=== PATIENT | female | born 1965 | race Caucasian/White ===

== ENCOUNTER → 2024-02-09 10:00 | Outpatient (CLI) | payer BC, SELFPAY ==
--- NOTE | 2024-02-09 10:02 | DI.RAD.S_ITS ---
PROCEDURE: XR CHEST 2V INDICATIONS: short of breath with exertion TECHNIQUE: 2 views of the chest were acquired. COMPARISON: None. FINDINGS: Surgical changes and devices: None. Lungs and pleura: Lungs are clear. No pleural effusions or pneumothorax. Mediastinum: Mediastinal contours are normal. Heart size is normal. Bones and chest wall: No suspicious bony abnormalities. Soft tissues appear unremarkable. IMPRESSION: No acute cardiopulmonary abnormality is seen. Dictated by: Jud Tello MD, PhD on 02/09/2024 at 10:25 Approved by: Jud Tello MD, PhD on 02/09/2024 at 10:25
[2024-02-09 10:55] LABS: D Dimer < 215 ng/ml (<500)
[2024-02-09 10:59] LABS: Creatine Kinase 135 U/L (30-135)
[2024-02-09 11:11] LABS: Troponin I < 0.012 ng/mL (0.01-0.034)
== END ==
PROVIDERS: Referring Provider Student in an Organized Health Care Education/Training Program; Visit Provider Student in an Organized Health Care Education/Training Program
DX: R06.02 Shortness of breath (principal); R53.83 Other fatigue
CPT/HCPCS: 36415; 71046; 82550; 84484; 85379

== ENCOUNTER → 2024-04-06 09:53 | Outpatient (CLI) | payer BC, SELFPAY ==
[2024-04-06 10:29] LABS: Add Manual Diff / Slide Review NO; Basophils Absolute Auto 100 /uL (0-100); Basophils Percent Auto 0.8 % (0-2); Eosinophils Absolute Auto 100 /uL (0-450); Eosinophils Percent Auto 0.9 % (2-4); Hematocrit 42.2 % (36-46); Hemoglobin 14.2 g/dL (12.0-16.0); Lymphocytes Absolute Auto 1700 /uL (1100-4500); Lymphocytes Percent Auto 25.4 % (25-40); Mean Corpuscular HGB Conc 33.6 % (30-36); Mean Corpuscular Hemoglobin 31.1 PG (26-34); Mean Corpuscular Volume 92.6 fL (80-100); Monocytes Absolute Auto 500 /uL (0-900); Monocytes Percent Auto 7.7 % (3-14); Neutrophils Absolute Auto 4400 /uL (1500-7000); Neutrophils Percent Auto 65.2 % (50-75); Platelet Count 223 X10^3/uL (150-400); Red Blood Cell Count 4.56 X10^6/uL (4.0-5.2); Red Cell Distribution Width 13.4 % (11.6-14.8); White Blood Cell Count 6.8 X10^3/uL (4.5-11.0)
[2024-04-06 10:54] LABS: HEMOLYSIS 20 (0-50); Iron 97 ug/dL (37-170)
[2024-04-06 11:05] LABS: Percent Iron Saturation 33 % (15-50); Total Iron Binding Capacity 296 ug/dL (265-497); Transferrin 243 mg/dL (206-381)
[2024-04-06 11:32] LABS: Ferritin 42 ng/mL (11-264)
== END ==
PROVIDERS: PCP Family Medicine; Referring Provider Family Medicine; Visit Provider Family Medicine
DX: D50.9 Iron deficiency anemia, unspecified (principal)
CPT/HCPCS: 36415; 82728; 83540; 83550; 85025

== ENCOUNTER 2024-06-02 18:46 | Emergency (ER) | payer BC, SELFPAY ==
[2024-06-02 18:50] VITALS: BP 180/84; PULSE 71; RESP 16; TEMP 36.5; O2SAT 100; BMI 18.3
--- NOTE | 2024-06-02 18:57 | DI.RAD.S_ITS ---
PROCEDURE: XR HAND LT MIN 3V INDICATIONS: trauma TECHNIQUE: 3 views of the hand acquired. COMPARISON: None. FINDINGS: Bones: No acute fractures or dislocations. Postsurgical changes from 1st carpometacarpal arthroplasty. Carpal bones are normally aligned. No suspicious bony lesions. Soft tissues: No suspicious soft tissue calcifications. No radiopaque foreign body. IMPRESSION: 1. Postsurgical changes at the 1st carpometacarpal joint. 2. No acute osseous abnormality. If there is continued clinical concern or persistent symptoms, repeat radiographs or cross-sectional imaging (e.g. CT, MRI) may be helpful for further evaluation. Approved by: Emmanuel Emanuel M.D. on 06/02/2024 at 19:53
--- NOTE | 2024-06-02 20:07 | ED.GENADULT ---
HPI - General Adult General Chief complaint: Extremity Injury, Upper Stated complaint: dog ran into lt hand Time Seen by Provider: 06/02/24 19:59 Source: patient Mode of arrival: Ambulatory History of Present Illness HPI narrative: 58-year-old female. Recent surgical intervention of her left thumb. Still is in a removable brace. Stated that she was here because she had an episode earlier today where she was unsure exactly what happened but she was holding her dog with the right hand. She was unsure whether or not the dog ran into her left hand/wrist or if it was potentially bent backwards but since that time has had discomfort in the left thumb and bruising the left thumb which is new. Related Data Home Medications Medication Instructions Recorded Confirmed estrogen patch .Route 02/09/24 04/06/24 testosterone .Route 02/09/24 04/06/24 clonazepam 0.5 mg tablet mg PO I started having panic 03/09/24 04/06/24 attacks Previous Rx's Medication Instructions Recorded rizatriptan 10 mg disintegrating 10 mg PO Q2-4H Occasional 04/01/24 tablet migraines #90 tabs ferumoxytol 510 mg/17 mL (30 510 mg (17 mL) IV Q3D 2 doses 04/26/24 mg/mL) intravenous solution (Feraheme) meperidine 50 mg/5 mL oral solution 50 mg (5 mL) PO Q6H PRN pain #200 05/23/24 mL meloxicam 7.5 mg tablet 7.5 mg PO DAILY #45 tabs 05/25/24 Allergies Allergy/AdvReac Type Severity Reaction Status Date / Time tramadol Allergy Mild Verified 06/02/24 18:56 codeine Allergy Unknown Verified 06/02/24 18:56 morphine Allergy Unknown Verified 06/02/24 18:56 ondansetron [From Zofran] Allergy Unknown Verified 06/02/24 18:56 escitalopram [From Lexapro] AdvReac Mild Verified 06/02/24 18:56 Tetracyclic Antidepressants AdvReac Mild Verified 06/02/24 18:56 Review of Systems Review of Systems Narrative: See HPI Patient History Medical History Fe deficiency anemia EDS (Nelly-Danlos syndrome) Surgical History (Updated 04/01/24 @ 12:37 by Amadeo Stephens MA) [place] teeth removed Social History Smoking Status: Smoker, status unknown Smoking Status: Smoker, status unknown Substance Use Type: does not use Exam Initial Vital Signs Initial Vital Signs: Vital Signs Temperature 97.7 F 06/02/24 18:50 Pulse Rate 71 06/02/24 18:50 Respiratory Rate 16 06/02/24 18:50 Blood Pressure 180/84 H 06/02/24 18:50 Pulse Oximetry 100 06/02/24 18:50 Oxygen Delivery Method Room Air 06/02/24 18:50 Cardio Pulses: radial pulses present on the left Skin Other: Surgical incision radial aspect of left thumb. Appears well and intact. No signs of infection Neuro Sensory Exam: no sensory deficits noted Extrem Other: Mild swelling and bruising base of the left thumb Course Orders Ordered: ED Orders 06/02/24 18:57 XR hand LT min 3V Stat Vital Signs Vital signs: Vital Signs - 8 hr 06/02/24 20:10 Temperature 97.4 F L Pulse Rate 64 Respiratory Rate 14 Blood Pressure 134/66 Pulse Oximetry 99 Oxygen Delivery Method Room Air Medical Decision Making Imaging Data Extremity x-ray #1: Radiologist's Impression: PROCEDURE: XR HAND LT MIN 3V INDICATIONS: trauma TECHNIQUE: 3 views of the hand acquired. COMPARISON: None. FINDINGS: Bones: No acute fractures or dislocations. Postsurgical changes from 1st carpometacarpal arthroplasty. Carpal bones are normally aligned. No suspicious bony lesions. Soft tissues: No suspicious soft tissue calcifications. No radiopaque foreign body. IMPRESSION: 1. Postsurgical changes at the 1st carpometacarpal joint. 2. No acute osseous abnormality. If there is continued clinical concern or persistent symptoms, repeat radiographs or cross-sectional imaging (e.g. CT, MRI) may be helpful for further evaluation. MDM Narrative Medical decision making narrative: Neurovascularly intact, surgical incisions appear well. X-ray show no acute pathology. Surgical hardware in place. Discussed this with the patient. Will have her continue to follow the postprocedure instructions given to her by the operative surgeon. She was given return precautions. She expressed understanding and agreement. Discharge Plan Departure Patient Disposition: Home Clinical Impression: Post-operative pain Activity Restrictions/Additional Instructions: Continue to take all of your medications as directed. You can start taking a class of medicine called a proton pump inhibitor. Examples of this include Nexium/omeprazole/Prilosec/esomeprazole. You can purchase these [id number]. They can be helpful with treating the GI upset that you get with the meloxicam. Keep all of your scheduled medical appointments. Return to the emergency department for new symptoms. Prescriptions: No Action estrogen patch .Route Rx Instructions: dermal patch testosterone .Route Rx Instructions: topical clonazepam 0.5 mg tablet PO Patient Comments: I recently found out that I need surgery on my hands, and am having to give away my horses, and it set off my PTSD from 4 years ago. 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 rizatriptan 10 mg tablet,disintegrating 10 mg PO Q2-4H Qty: 90 4RF ferumoxytol [Feraheme] 510 mg/17 mL (30 mg/mL) solution 510 mg IV Q3D Rx Instructions: administer at a rate of up to 1 mL /sec (30 mg /sec ) meperidine 50 mg/5 mL solution 50 mg PO Q6H PRN (Reason: pain) Qty: 200 0RF meloxicam 7.5 mg tablet 7.5 mg PO DAILY Qty: 45 1RF Referrals: Florencia Callaway MD [Primary Care Provider] - Stand Alone Forms: Patient Portal/API
[2024-06-02 20:10] VITALS: BP 134/66; PULSE 64; RESP 14; TEMP 36.3; O2SAT 99
== END 2024-06-02 20:10 | disposition home or self-care (01) ==
PROVIDERS: Emergency Provider Emergency Medicine; PCP Family Medicine
DX: M79.645 Pain in left finger(s) (principal); W54.1XXA Struck by dog, initial encounter; G89.18 Other acute postprocedural pain
CPT/HCPCS: 73130; 99281; 99283

== ENCOUNTER → 2024-06-11 09:29 | Outpatient (CLI) | payer BC, SELFPAY ==
[2024-06-11 09:56] LABS: Add Manual Diff / Slide Review NO; Basophils Absolute Auto 0 /uL (0-100); Basophils Percent Auto 0.9 % (0-2); Eosinophils Absolute Auto 100 /uL (0-450); Eosinophils Percent Auto 1.7 % (2-4); Hematocrit 42.6 % (36-46); Hemoglobin 14.5 g/dL (12.0-16.0); Lymphocytes Absolute Auto 1600 /uL (1100-4500); Mean Corpuscular Hemoglobin 31.3 PG (26-34); Mean Corpuscular Volume 92.3 fL (80-100); Monocytes Absolute Auto 500 /uL (0-900); Monocytes Percent Auto 8.6 % (3-14); Neutrophils Absolute Auto 3000 /uL (1500-7000); Neutrophils Percent Auto 57.8 % (50-75); Platelet Count 267 X10^3/uL (150-400); Red Blood Cell Count 4.62 X10^6/uL (4.0-5.2); White Blood Cell Count 5.3 X10^3/uL (4.5-11.0)
[2024-06-11 10:06] LABS: HEMOLYSIS < 15 (0-50); Iron 78 ug/dL (37-170)
[2024-06-11 10:16] LABS: Percent Iron Saturation 32 % (15-50); Total Iron Binding Capacity 247 ug/dL (265-497); Transferrin 199 mg/dL (206-381)
[2024-06-11 10:42] LABS: Ferritin 374 ng/mL (11-264)
== END ==
PROVIDERS: PCP Family Medicine; Referring Provider Family Medicine; Visit Provider Family Medicine
DX: D50.9 Iron deficiency anemia, unspecified (principal)
CPT/HCPCS: 36415; 82728; 83540; 83550; 85025

== ENCOUNTER → 2024-11-18 11:48 | Outpatient (CLI) | payer BC, SELFPAY ==
--- NOTE | 2024-11-18 11:50 | DI.RAD.S_ITS ---
PROCEDURE: XR HAND RT MIN 3V INDICATIONS: Post-op f/up imaging for surgery TECHNIQUE: Four views of the right hand acquired. COMPARISON: [facility], CR, XR HAND LT MIN 3V, 06/02/2024, 19:02. FINDINGS: Bones: There are no osseous abnormalities Joints: 1st CMC arthroplasty components are anatomically aligned without loosening or infection. Moderate degenerative change in the 2nd MCP and mild degenerative change in all interphalangeal joints appreciated. Soft tissues: There are 2 tiny calcifications in the ulnar carpal region which could indicate loose bodies IMPRESSION: First CMC arthroplasty anatomic alignment without complication. Dictated by: Dvaid Boothe M.D. on 11/22/2024 at 11:17 Approved by: David Boothe M.D. on 11/22/2024 at 11:19
== END ==
PROVIDERS: PCP Family Medicine; Referring Provider Family Medicine; Visit Provider Family Medicine
DX: Z96.691 Finger-joint replacement of right hand (principal)
CPT/HCPCS: 73130